=== PATIENT | male | born 1990 | race Hispanic/Latino ===

== ENCOUNTER 2024-06-22 19:27 | Emergency (ER) | payer SELFPAY ==
[~2024-06-22] VITALS: Ht 177.8 cm; Wt 158.8 kg
[2024-06-22 19:53] VITALS: PULSE 97; RESP 16; TEMP 99; O2SAT 98
== END 2024-06-22 20:04 | disposition home or self-care (01) ==
LOC: ER 19:35
DX: R50.9 Fever, unspecified (principal); N47.6 Balanoposthitis; I10 Essential (primary) hypertension; E78.5 Hyperlipidemia, unspecified; R73.03 Prediabetes
CPT/HCPCS: 99283